=== PATIENT | male | born 1960 | race Caucasian/White ===

== ENCOUNTER 2022-09-09 21:09 | Emergency (ER) | payer BC, SELFPAY ==
[2022-09-09] VITALS (14 sets, daily range): BP systolic 90–158; BP diastolic 56–97; PULSE 54–176; RESP 17–22; TEMP 36.2; O2SAT 97–100
--- NOTE | ~2022-09-09 | XR_ITS ---
EXAMINATION: XR chest 2V Exam Date/Time: 09/09/2022 21:40 CDT HISTORY: Dyspnea Comparison: None available. RESULT: Lines, tubes, and devices: Cholecystectomy clips. Lungs and pleura: Streaky linear and interstitial opacities in the left lung base. Linear scar in th e right lung base. Cardiomediastinal silhouette: Unremarkable. Other: No acute osseous or upper abdominal finding. IMPRESSION: Left basilar opacities may represent atelectasis and/or scar, possibly with a component of chronic as piration, in the appropriate clinical context. Reviewed, dictated and finalized at location K. IMPRESSION: Left basilar opacities may represent atelectasis and/or scar, possibly with a c omponent of chronic aspiration, in the appropriate clinical context.
--- NOTE | 2022-09-09 21:11 | ECG_ITS ---
Measurements Intervals [place] Rate: 155 P: 63 SC: 151 QRS: -38 QRSD: 89 T: 68 QT: 316 QTc: 508 Interpretive Statements SUPRAVENTRICULAR TACHYCARDIA CONVERTING TO SINUS RHYTHM WITH PVCS VERSUS APPARENTLY CONDUCTED COMPLEXES NONSPECIFIC ST AND T-WAVE ABNORMALITIES ABNORMAL ECG Electronically Signed On 09-10-2022 10:24:39 CDT by Adan Smith M.D.
--- NOTE | 2022-09-09 21:11 | ED.SOB ---
HPI - SOB/Dyspnea General Chief Complaint: Arrhythmia/Palpitations Stated Complaint: chest pains, dizzy Time Seen by Provider: 09/09/22 21:11 Source: patient, family and RN notes reviewed Mode of arrival: ambulatory Limitations: no limitations History of Present Illness HPI Narrative: 61-year-old male with no past medical history presents with a 1 month history of intermittent palpitations, lightheadedness and chest tightness. He states the last 3 days seems to gotten worse and more frequent. Today's episode became significantly worse approximately 7 hours prior to arrival. He denies any nausea denies any diaphoresis. He denies any radiation pain. MD elicited complaint: shortness of breath Related Data Home Medications Medication Instructions Recorded Confirmed No Home Medications 09/09/22 09/09/22 Allergies Allergy/AdvReac Type Severity Reaction Status Date / Time Penicillins Allergy Hives Verified 09/09/22 22:03 [facility] Past Medical History Medical History (Updated 09/09/22 @ 22:17 by Jesus Song MD) No active medical problems Surgical History Surgical History (Updated 09/09/22 @ 21:34 by Jesus Song MD) History of ankle surgery Hx of cholecystectomy Family History Family History (Updated 09/10/22 @ 01:39 by Paulina Wills RN) Mother COPD (chronic obstructive pulmonary disease) Smokes Mitral valve problem Hx of CABG Heart problem Father COPD (chronic obstructive pulmonary disease) Emphysema lung Smokes Social History Social History (Updated 09/09/22 @ 21:35 by Jesus Song MD) Smoking packs per day: 1 Smoking cigarettes per day: 20.0 Smoking status: Current every day smoker Alcohol intake: current Alcohol use details: occasionally Substance use: current Substance use type: marijuana Spiritual care concerns: No Has the Lack of Transportation Kept You From Medical Appointments or From Getting Medications?: No Within the Past 12 Months, Were You Worried Whether Your Food Would Run Out Before You Got Money to Buy More?: Never True What is Your Housing Situation Today?: I Have Housing Are You Worried That in the Next 2 Months, You May Not Have Your Own Housing to Live In?: No Do You Have Trouble Paying Your Heating Or Electricity Bill?: No Do You Have Trouble Paying For Medicines?: No Are You Currently Unemployed and Looking for Work?: No Highest Level of Education Completed: High School Diploma/GED Do You Have Trouble With Childcare or the Care of a Family Member?: No Exam Const: General: healthy appearing, no acute distress and alert Nutritional Appearance: well nourished Orientation/consciousness: patient oriented x3 Limitations: no limitations HENMT: Head: normal to inspection Ears: external ears normal Face/Nose/Sinus: Normal external nose present Face and sinus: normal facial exam Mouth: Yes moist mucous membranes Eyes: Conjunctivae: conjunctivae normal Pupils: Equal, round and reactive pupils present EOM: EOMs intact bilaterally Neck: Neck: normal visual inspection Chest: Chest palpation & inspection: normal inspection of the chest Resp: Effort & Inspection: normal respiratory effort Auscultation: clear to auscultation bilaterally Cardio: Rate: tachycardic Rhythm: abnormal rhythm with ectopic beats GI: GI Palp: Yes Soft to palpation and No Tenderness to palpation present (GI) Auscultation: normal bowel sounds Back/Spine/Pelvis: Cervical Spine: cervical ROM normal Thoracic/Lumbar Spine: thoraco-lumbar ROM normal Skin: General skin exam: normal color Rashes: no rashes Neuro: General: patient oriented x3, moves all extremities, no focal motor deficits and CN's II-XI intact bilaterally Speech: normal speech Gait exam (Neuro): Normal gait present Extrem: General: normal to inspection and no clubbing, cyanosis or edema Psych: Mental Status: mental status grossly normal Attitude: cooperative Course Course Briana
[2022-09-09] MEDS: dilTIAZem 100 MG/100 ML 100 MG/100 ML BAG 10 MG IV CONT (21:30)
[2022-09-09 21:36] LABS: Basophils Absolute Auto 0.04 K/mm3 (0.00-0.10); Basophils Percent Auto 0.3 % (0.0-1.0); Eosinophils Absolute Auto 0.15 K/mm3 (0.02-0.50); Hematocrit 44.1 % (40.0-54.0); Hemoglobin 14.9 g/dL (14.0-18.0); Immature Granulocyte Absolute 0.09 K/mm3 (0.00-0.00); Immature Granulocyte Percent A 0.6 % (0.0-0.0); Lymphocytes Percent Auto 25.4 % (18.0-42.0); Mean Corpuscular HGB Conc 33.8 g/dL (32.0-36.0); Mean Corpuscular Hemoglobin 32.7 pg (27.0-31.0); Mean Corpuscular Volume 96.7 fL (78.0-102.0); Mean Platelet Volume 9.3 fl (8.7-11.0); Monocytes Absolute Auto 0.98 K/mm3 (0.10-0.90); Monocytes Percent Auto 6.7 % (2.0-11.0); Neutrophils Absolute Auto 9.6 K/mm3 (1.7-7.2); Platelet Count Result 355 K/mm3 (150-420); Red Blood Count 4.56 M/mm3 (4.70-6.10); Red Cell Distribution Width 12.7 % (11.6-14.4); White Blood Count 14.6 K/mm3 (4.8-10.8)
[2022-09-09 21:50] LABS: INR 0.9; Partial Thromboplastin Time 28.1 SEC (23.90-30.70); Prothrombin Time 10.4 Seconds (9.50-12.10)
[2022-09-09] MEDS: AMIODARONE 150 MG/D5W 100 ML 150 MG/100 ML BAG 600 MG IV CONT (21:58)
[2022-09-09 22:01] LABS: Alanine Aminotransferase 26 U/L (16-63); Albumin Level 3.5 g/dL (3.4-5.0); Alkaline Phosphatase 110 U/L (46-116); Anion Gap 9 mmol/L (8-16); Aspartate Amino Transferase 13 U/L (15-37); Bilirubin,Total 0.3 mg/dL (0.00-1.00); Blood Urea Nitrogen 11 mg/dL (7-18); Calcium 8.8 mg/dL (8.5-10.1); Carbon Dioxide 29 mmol/L (21-32); Chloride 105 mmol/L (98-108); Estimated Glomerular Filt Rate 60; Glucose 150 mg/dL (70-99); NT Pro B Type Natriuretic Pept 430 pg/mL (0-125); Osmolality Calculated 298 mOsm/kg (285-295); Potassium 3.3 mmol/L (3.5-5.1); Sodium 143 mmol/L (136-145); Total Protein 6.9 g/dL (6.4-8.2); Troponin I 13.7 ng/L (0.00-60.4)
[2022-09-09 22:02] LABS: Thyroid Stimulating Hormone 3.91 uIU/mL (0.36-3.74)
--- NOTE | 2022-09-09 22:12 | PC.NURSE ---
called Paul rigginswarehouse technician for pt transfer - spoke with Gómez
[2022-09-09] MEDS: POTASSIUM BICARBONATE 25 MEQ TABEF 50 MEQ PO (22:20)
[2022-09-09] MEDS: dilTIAZem HCl INJ 25 MG/5 ML VIAL 20 MG IV PUSH (22:23)
[2022-09-09] MEDS: Please add drug allergy info to patient profile. 1 EACH XX (22:33)
--- NOTE | 2022-09-09 22:37 | PC.NURSE ---
Addendum entered by Ravi Ruiz RN 09/09/22 22:40: call placed at [phone] Original Note: Second call to Paul - spoke with Mely Ma should be calling in the next few minutes.
--- NOTE | 2022-09-09 22:38 | PC.NURSE ---
[facility] returned call. MD Ma phone call transferred to MD Song
[2022-09-09] MEDS: AMIODARONE 360 MG/D5W 200 ML 360 MG/200 ML BAG 33.33 MG IV CONT (22:49)
[2022-09-09 22:56] LABS: D Dimer 0.27 mg/L (0.19-0.50)
--- NOTE | 2022-09-09 23:22 | PC.NURSE ---
[facility] - MD Cook returned call - speaking with MD Song.
--- NOTE | 2022-09-09 23:32 | PC.NURSE ---
pt to be transferred to [place] [facility] room 201
--- NOTE | 2022-09-09 23:33 | PC.NURSE ---
Gómez granda deanna called to correct room number to IMU 210
[2022-09-09] MEDS: ENOXAPARIN 1 MG/KG 90 MG SUB-Q (23:43)
--- NOTE | 2022-09-09 23:49 | PC.NURSE ---
requested [facility] transfer from [facility]
[2022-09-10 00:02] VITALS: BP 125/47; PULSE 124; RESP 18; O2SAT 97
[2022-09-10 00:27] VITALS: BP 125/47; PULSE 146
[2022-09-10 00:30] VITALS: BP 125/47; PULSE 146
--- NOTE | 2022-09-10 00:30 | PC.NURSE ---
[facility] transporting pt from [facility] to [place] [facility] room 210
[2022-09-10 00:31] VITALS: BP 125/47; PULSE 146
[2022-09-10 00:33] VITALS: BP 125/47; PULSE 146; RESP 19; TEMP 36.8; O2SAT 97
== END 2022-09-10 00:35 | disposition short-term general hospital (02) ==
PROVIDERS: Emergency Provider Emergency Medicine
DX: I47.1 Supraventricular tachycardia (principal); E87.6 Hypokalemia; R06.02 Shortness of breath
CPT/HCPCS: 36415; 71046; 80053; 83735; 83880; 84443; 84484; 85025; 85380; 85610; 85730; 93005; 96365; 96366; 96367; 96372; 96376; 99285; A9270; J0153; J0282; J1650

== ENCOUNTER 2022-09-10 04:09 | Observation (INO) | payer BC, SELFPAY ==
[2022-09-10] VITALS (12 sets, daily range): BP systolic 107–138; BP diastolic 64–84; PULSE 56–81; RESP 16–18; TEMP 36.3–36.7; O2SAT 97–100; BMI 25.7
--- NOTE | 2022-09-10 | ECHO_ITS ---
Patient Info Name: Parveen Cavazos Age: 61 years : 1960 Gender: Male Ht: 73 in Wt: 194 lbs BSA: 2.14 m2 HR: 75 bpm BP: 112 / 71 mmHg Heart Rhythm: Sinus Rhythm Technical Quality: Good Exam Date: 09/10/2022 11:25 AM Exam Location: [facility] Pulmonary Exam Room: 210 Patient Status: Inpatient Admit Date: 09/10/2022 Staff Ordering Physician: Magaly Nguyen DO Fall Intern: Elisabet Shea RDCS Attending Provider: Magaly Nguyen DO Referring Physician: Patrick CID; Exam Type: CA echo doppler color flow Study Info Indications - CARDIAC ARRHYTHMIA Complete two-dimensional, color flow and Doppler transthoracic echocardiogram is performed. Summary 1. Complete two-dimensional, color flow and Doppler transthoracic echocardiogram is performed. 2. Left ventricular chamber dimension is normal. 3. Left ventricular systolic function is normal, estimated at 60-65%. 4. There is no increased left ventricular wall thickness. 5. The left ventricular diastolic function is normal. 6. Left atrial chamber dimension is mildly enlarged. 7. There is mild mitral valve regurgitation. 8. There is mild tricuspid valve regurgitation. Left Ventricle Left ventricular chamber dimension is normal. Left ventricular systolic function is normal, estimated at 60-65%. There is no increased left ventricular wall thickness. The left ventricular diastolic function is normal. Right Ventricle Right ventricular chamber dimension is normal. Right ventricular systolic function is normal. Left Atria Left atrial chamber dimension is mildly enlarged. Right Atria Right atrial chamber dimension is normal. Atrial Septum Intact interatrial septum visualized by color flow imaging. Aortic Valve The aortic valve is trileaflet. There is mild aortic valve sclerosis. There is no aortic valve stenosis. There is trace aortic valve regurgitation. Pulmonic Valve The pulmonic valve is normal. There is no pulmonic valve stenosis. There is trace pulmonic regurgitation. Mitral Valve The mitral valve has normal leaflets. There is no mitral valve stenosis. There is mild mitral valve regurgitation. Tricuspid Valve The tricuspid valve leaflets are normal. There is no significant tricuspid valve stenosis. There is mild tricuspid valve regurgitation. No pulmonary hypertension, estimated pulmonary arterial systolic pressure is 33 mmHg. Pericardium/Pleural The pericardium appears normal. There is trivial pericardial effusion. Inferior Vena Cava Normal inferior vena cava with >50% collapse upon inspiration consistent with normal right atrial pressure, 10 mmHg. Aorta The aortic root size at the sinus of Valsalva is normal. Left Ventricular Outflow Tract Name Value Normal LVOT 2D LVOT Diameter 2.1 cm LVOT Doppler LVOT Peak Gradient 4 mmHg LVOT Mean Gradient 2 mmHg LVOT VTI 19 cm LVOT VTI/AV VTI Ratio 0.9 LVOT Stroke Volume 64 ml LVOT CO
--- NOTE | 2022-09-10 01:11 | ADMGEN ---
This patient, Parveen Cavazos, was admitted to IMU Room 210-01 at 0100 from [facility] via [facility]. Patient/family oriented to hospital policies and general routines including ID bracelet, bed and alarms, visiting hours, pain management, procedures, bathroom and other care routines, personal items, smoking policy, room service/diet, and visiting hours. Information on how to activate the Rapid Response Team has been discussed. Patient/Family are encouraged to report perceived risks to care and to ask questions if they do not understand what they are told or what they should do.
--- NOTE | 2022-09-10 01:29 | ECG_ITS ---
Measurements Intervals [place] Rate: 78 P: 59 ME: 156 QRS: -39 QRSD: 89 T: 41 QT: 366 QTc: 418 Interpretive Statements SINUS RHYTHM MARKED LEFT AXIS DEVIATION [QRS AXIS < -30] ABNORMAL ECG COMPARED TO ECG 09/09/2022 21:14:39 SINUS RHYTHM NOW PRESENT Electronically Signed On 09-10-2022 10:20:52 CDT by Adan Smith M.D.
[2022-09-10] MEDS: AMIODARONE 360 MG/D5W 200 ML 360 MG/200 ML BAG 16.67 MG IV CONT (04:15)
--- NOTE | 2022-09-10 04:16 | PM.IMHP ---
H&P: HPI History of Present Illness Date/Time: 09/10/22 04:16 Chief Complaint: ?I feel like my heart is racing? Narrative: 61-year-old male with a past medical history of tobacco abuse who presented to the ER at [place] with sensation of his heart racing. The patient reports that he has been having several episodes of this over the last month. But his other episodes of racing heart lasted only a few minutes and resolved. But over the last 3 days he has had numerous episodes of palpitations. He he was off work on Thursday but was supposed to return to work Thursday and Thursday and could not go to work due to the intensity and duration of his symptoms. Symptoms start with chest pressure, feeling lightheaded and flushed. He will also become dizzy and usually symptoms resolve about the time he feels like he is going to pass out. He states that he would not describe the chest pressure is pain. However he does have some chest soreness that is reproducible to palpation following these episodes of palpitations. 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 Denies taking any stimulants and only drinks 1-2 caffeinated beverages day. He still smokes 1 pack of cigarettes per day. he denies any known medical history but has not seen a physician since he had his gallbladder out at least 10 years ago and has not seen a primary care physician in many years before that. He denies any recent weight loss, hematochezia, melena or hematuria. At the outside facility here staff reports the patient initially looked like he was and atrial flutter with RVR. He was given 20 mg of Cardizem IV. He was then started on a Cardizem drip. Physician felt at that time that he had switch in SVT and they were getting ready given a dose of adenosine after they had paused the Cardizem drip. However he converted into a sinus rhythm. He continued to have an irritable rhythm and was in an out of sinus rhythm and ventricular tachycardia. Heart rate was into the 190s according to ER physician. He was also noted have episodes of bigeminy and moments of bradycardia. He then gave 150 mg amiodarone bolus over 10 minutes. He discussed the patient's case with Dr. Ma and the patient was placed on amiodarone drip. The patient then converted to sinus rhythm before arrival at our facility. Repeat EKG was performed and confirmed patient was in sinus rhythm. The patient reports that he has had a chronic cough with mucus production ever since he was young. It sounds as if he was having frequent episodes of pneumonia a possible reactive airway symptoms when he was a child. He denies any fevers or chills. He does report hearing loss but works and the loud environment. Review of Systems Review of Systems: 12 systems were reviewed with pertinent positives and negatives per HPI. Except as documented in the HPI, all other systems were reviewed and are negative. [facility] Past Medical History Medical History (Updated 09/10/22 @ 04:58 by Magaly Nguyen DO) Continuous tobacco abuse Surgical History Surgical History (Updated 09/10/22 @ 04:37 by Magaly Nguyen DO) History of ankle surgery Left ankle Hx of cholecystectomy (~2011) Family History Family History Mother COPD (chronic obstructive pulmonary disease) Smokes Mitral valve problem Hx of CABG Father COPD (chronic obstructive pulmonary disease) Emphysema lung Smokes Social History Social History (Updated 09/10/22 @ 04:41 by Magaly Nguyen DO) Social History: He lives with his of 3 years. He does not have any children. 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 He has smoked a pack of cigarettes per day since he was 16 years old. He drinks 1-2 caffeinated beverages a day. He smokes marijuana ?on occasion. Code status: Full code [place]
[2022-09-10 05:48] LABS: Basophils Absolute Auto 0.1 K/mm3 (0.0-0.1); Basophils Percent Auto 0.6 % (0.2-1.2); Eosinophils Absolute Auto 0.2 K/mm3 (0-0.3); Eosinophils Percent Auto 1.7 % (0-4.4); Hematocrit 43.4 % (42.0-52.0); Hemoglobin 14.7 g/dL (14.0-18.0); Immature Granulocyte Absolute 0.13 K/mm3 (0.00-0.031); Immature Granulocyte Percent A 1.3 % (0-0.5); Lymphocytes Absolute Auto 3.61 K/mm3 (0.9-3.2); Lymphocytes Percent Auto 36.4 % (18.3-44.2); Mean Corpuscular HGB Conc 33.9 g/dl (32-36); Mean Corpuscular Volume 97.5 fl (80-100); Mean Platelet Volume 9.7 fl (7.4-10.4); Monocytes Absolute Auto 0.7 K/mm3 (0.1-0.6); Monocytes Percent Auto 7.4 % (2.6-8.5); Neutrophils Absolute Auto 5.2 K/mm3 (1.3-6.7); Neutrophils Percent Auto 52.6 % (45.5-73.1); Platelet Count Result 327 k/mm3 (150-375); Red Blood Count 4.45 M/mm3 (4.6-6.20); White Blood Count 9.9 K/mm3 (4.5-10.0)
[2022-09-10 05:58] LABS: Anion Gap 9 mmol/L (8-16); Blood Urea Nitrogen 12 mg/dL (9-20); Calcium 9.2 mg/dL (8.4-10.2); Carbon Dioxide 25 mmol/L (22-30); Chloride 105 mmol/L (98-107); Cholesterol 190 mg/dL (0-200); Estimated CRCL calculation 85 ml/min; Estimated Glomerular Filt Rate > 60; Glucose 108 mg/dL (65-110); HDL Direct 41 mg/dL; Magnesium 2.2 mg/dL (1.6-2.3); Potassium 3.9 mmol/L (3.4-5.0); Sodium 139 mmol/L (137-145); Triglycerides 89 mg/dL (<150)
[2022-09-10 06:08] LABS: LDL Cholesterol Direct 128 mg/dL
[2022-09-10 06:11] LABS: Free T4 Free Thyroxine 1.09 ng/mL (0.78-2.19)
[2022-09-10] MEDS: ENOXAPARIN 100 MG/ML SYRINGE 88 MG SUB-Q ×2 (09:17→21:13)
[2022-09-10] MEDS: FLUTICASONE PROPIONATE 0.05% NA SPR 16 GM BTL (*BKC) 2 SPRAY NASAL (09:17)
--- NOTE | 2022-09-10 10:49 | PM.IMPN ---
Progress Note: A&P Assessment and Plan (1) Cardiac arrhythmia: Code(s): I49.9 - Cardiac arrhythmia, unspecified Status: Acute Assessment and Plan: Patient had converted back to sinus rhythm and is on amiodarone drip. Awaiting further recommendations from Cardiology. The patient has been admitted to the IMU. Given that portion of the patient's rhythm appeared to be consistent with possible atrial flutter patient was given a dose of full-dose Lovenox. Will obtain echocardiogram to further evaluate cardiac structure and function. (2) Hypokalemia: Code(s): E87.6 - Hypokalemia Status: Acute Assessment and Plan: Patient received 50 mEq of potassium bicarbonate at the outside hospital. Will repeat BMP in a.m. for potassium closer to 4. Magnesium was 2. (3) Chronic cough: Code(s): R05.3 - Chronic cough Status: Acute Assessment and Plan: The patient reports symptoms since childhood. He may have a component of asthma which is certainly not helped by his continuous tobacco use. Tobacco cessation information has been provided. Patient would benefit from outpatient PFTs. I did evaluate the patient's nasal mucous membranes any does have some at edema. Will start patient on Flonase for allergic rhinitis (4) Allergic rhinitis: Qualifiers: Allergic rhinitis trigger: unspecified Allergic rhinitis seasonality: non-seasonal Qualified Code(s): J30.89 - Other allergic rhinitis Code(s): J30.9 - Allergic rhinitis, unspecified Status: Acute Assessment and Plan: Trial of Flonase. (5) Hearing loss: Qualifiers: Hearing loss type: unspecified Laterality: bilateral Qualified Code(s): H91.93 - Unspecified hearing loss, bilateral Code(s): H91.90 - Unspecified hearing loss, unspecified ear Status: Acute Assessment and Plan: He reports hearing loss that has gotten progressively worse. He would benefit from from outpatient audiology evaluation Plan See H&P as it was written after midnight for plan. Appreciate recommendations from Cardiology. Subjective Date/time seen: 09/10/22 10:49 Patient seen and examined this morning. Patient says he has not felt any palpitations or fluttering in his chest since approximately an hour after he arrived on the floor from the emergency department. He says after each episode he has intense chest pain feeling like something hit him in the chest. He says he is having that pain now. He denies lightheadedness, nausea, shortness of breath. Exam Narrative: GENERAL: NAD, cooperative HEENT: Normocephalic, atraumatic, anicteric NECK: Supple CV: Normal S1, S2, RRR, No MRG RESP: Scattered expiratory wheezes EXTREMITIES: Warm and well perfused, no clubbing, cyanosis, or edema. SKIN: warm, dry and intact. NEURO: CN 2-12 grossly intact. Objective Data Vital Signs Vital Signs: Vital Signs - 24 hr 09/10/22 00:58 09/10/22 01:10 09/10/22 01:46 Temperature 36.3 C L Pulse Rate 81 78 Respiratory Rate 18 Blood Pressure 118/78 Pulse Oximetry 100 Oxygen Delivery Room Air 09/10/22 04:00 09/10/22 04:15 09/10/22 04:00 Temperature 36.7 C Pulse Rate 68 66 75 Respiratory Rate 18 16 Blood Pressure 112/71 Pulse Oximetry 100 98 Oxygen Delivery Room Air 09/10/22 06:00 09/10/22 06:00 09/10/22 08:00 Temperature 36.7 C 36.4 C L Pulse Rate 68 69 Respiratory Rate 16 16 Blood Pressure 110/74 122/81 Pulse Oximetry 99 98 Oxygen Delivery 09/10/22 08:00 09/10/22 08:00 09/10/22 12:00 Temperature 36.3 C L Pulse Rate 72 72 Respiratory Rate 18 Blood Pressure 133/75 Pulse Oximetry 97 Oxygen Delivery Room Air 09/10/22 12:00 09/10/22 12:00 09/10/22 16:00 Temperature Pulse Rate 69 65 Respiratory Rate Blood Pressure Pulse Oximetry Oxygen Delivery Room Air 09/10/22 16:00 09/10/22 16:00 Temperature
--- NOTE | 2022-09-10 13:37 | PM.CNCAR ---
Assessment and Plan Assessment and plan (1) Cardiac arrhythmia: Code(s): I49.9 - Cardiac arrhythmia, unspecified Status: Acute Assessment and Plan: Appears to have sustained supraventricular tachycardia versus atrial flutter (less likely). Also frequent PVCs is well as some bursts of nonsustained ventricular tachycardia. Rhythm as essentially settled down now that he is on amiodarone. 2D echocardiogram with Dopplers ordered and will be reviewed. Will discontinue the amiodarone drip at this point. Start him on metoprolol tartrate 25 mg p.o. b.i.d.. He may be downgraded to IMU status. He needs an outpatient stress test. Depending on his rhythm over the next 24 hours, likely discharge home tomorrow with outpatient cardiac monitoring. This of course is also dependent on the results of his echocardiogram. If he continues to have issues with tachycardia as an outpatient, will refer to electrophysiology. Will check a TSH, free T4 level. Keep magnesium greater than 2 and potassium greater than 4.0. (2) Supraventricular tachycardia: Code(s): I47.1 - Supraventricular tachycardia Status: Acute Assessment and Plan: On amiodarone drip for now. Will discontinue and start metoprolol. (3) Hypokalemia: Code(s): E87.6 - Hypokalemia Status: Acute Assessment and Plan: Replaced (4) Tobacco use: Code(s): Z72.0 - Tobacco use Status: Acute Assessment and Plan: Tobacco abuse counseling performed History of Present Illness History of Present Illness Consult date/time: 09/10/22 13:37 Requesting physician: Magaly Nguyen DO Consult reason: Other (Arrhythmia) Reason For Visit: cardiac arrhthmia,hypokalemia Narrative: : Date of service 09/10/2022 Reason consultation: Arrhythmia Requesting provider: Dr. Nguyen History patient 61-year-old male who was previously healthy who has a history of tobacco use. He states that he has been having some palpitations for several years. Typically is palpitations would last for few seconds. Over the past month however he has had several episodes of sudden onset of palpitations lasting anywhere from seconds to hours. He sometimes will become dizzy and has a head downey and presyncopal. He has not actually passed out. His chest will be pounding hard and quite fast. He denies any edema, paroxysmal nocturnal dyspnea. At the same time is having palpitations he will have some chest pain as well shortness of breath. He is lightheaded. His symptoms will improve gradually over time and seems to get better with deep breathing. Yesterday he had episodes that were associated with significant presyncope and so he went to the hospital in [place] for further workup evaluation treatment. He was found to be in a narrow complex tachycardia with heart rate of around 200 beats per minute. He also had periods of time which he had some PVCs and what appears to be some short burst of nonsustained ventricular tachycardia versus is SVT with aberrancy. Regardless his rhythm continue to go in and out of sinus mechanism and he eventually was transferred from [place] to [facility]. He was previously on a diltiazem drip and later converted to an amiodarone drip which has settled down his rhythm. Review of Systems Review of Systems: All systems reviewed & are unremarkable except as noted in HPI and below Constitutional: Constitutional: Denies body ache(s) and Denies chills Eyes: Eyes: Denies blurry vision ENT: Reports Normal hearing present Cardiovascular: Cardiovascular: Reports chest pain and Reports palpitations Respiratory: Respiratory: Reports dyspnea Gastrointestinal: Gastrointestinal: Denies abdominal pain Genitourinary: Genitourinary: Denies hematuria and Denies dysuria Musculoskeletal: Musculoskeletal: Denies myalgias Integumentary/Breasts: Skin/Breast: Denies erythema, Denies rash and Denies skin pain Neurologic: Denies Abnorm
[2022-09-10] MEDS: METOPROLOL TARTRATE 25 MG TABLET PO ×2 (15:12→21:13)
[2022-09-11] VITALS (8 sets, daily range): BP systolic 121–137; BP diastolic 77–81; PULSE 50–66; RESP 14–18; TEMP 36.1–36.3; O2SAT 97–99
[2022-09-11 05:31] LABS: Anion Gap 8 mmol/L (8-16); Blood Urea Nitrogen 12 mg/dL (9-20); Calcium 9.1 mg/dL (8.4-10.2); Carbon Dioxide 25 mmol/L (22-30); Chloride 104 mmol/L (98-107); Estimated CRCL calculation 71 ml/min; Estimated Glomerular Filt Rate > 60; Glucose 106 mg/dL (65-110); Potassium 4.1 mmol/L (3.4-5.0); Sodium 137 mmol/L (137-145)
[2022-09-11] MEDS: ENOXAPARIN 100 MG/ML SYRINGE 88 MG SUB-Q (09:54)
[2022-09-11] MEDS: METOPROLOL TARTRATE 25 MG TABLET PO (09:55)
--- NOTE | 2022-09-11 10:11 | PM.PNCARD ---
Progress Note: A&P Assessment and Plan (1) Cardiac arrhythmia: Code(s): I49.9 - Cardiac arrhythmia, unspecified Status: Acute Assessment and Plan: Appears to have sustained supraventricular tachycardia versus atrial flutter (less likely). Also frequent PVCs is well as some bursts of nonsustained ventricular tachycardia. Returned to sinus rhythm on amiodarone which was stopped yesterday. Remains in sinus rhythm today on metoprolol. Echo showed normal LVSF, no significant valvular abnormalities. Will arrange for outpatient exercise nuclear stress test OK for discharge today with 30 day patient monitor If he continues to have issues with tachycardia as an outpatient, will refer to electrophysiology. (2) Tobacco use: Code(s): Z72.0 - Tobacco use Status: Acute Assessment and Plan: Tobacco abuse counseling performed Subjective Date/time seen: 09/11/22 10:11 Cardiology follow up for SVT Interval history: Feeling well this morning, no complaints. Denies palpitations, shortness of breath, chest pain. No recurrence of tachycardia on telemetry. Review of Systems Review of Systems: All systems reviewed & are unremarkable except as noted in HPI and below Constitutional: Constitutional: Denies body ache(s), Denies chills, Denies excessive sweating, Denies fatigue and Denies headache(s) Eyes: Eyes: Denies blurry vision ENT: Reports Normal hearing present and Denies headache(s) Cardiovascular: Cardiovascular: Reports chest pain, Reports palpitations and Reports dyspnea Respiratory: Respiratory: Reports dyspnea Gastrointestinal: Gastrointestinal: Denies abdominal pain Genitourinary: Genitourinary: Denies hematuria and Denies dysuria Musculoskeletal: Musculoskeletal: Denies myalgias Integumentary/Breasts: Skin/Breast: Denies erythema, Denies rash and Denies skin pain Neurologic: Reports Normal hearing present, Denies Abnormal speech present and Denies headache(s) Psychiatric: Psychiatric: Denies anxiety Endocrine: Endocrine: Denies excessive sweating, Denies fatigue and Reports palpitations Hematologic/Lymphatic: Hematologic/Lymphatic: Denies easy bleeding Allergic/Immunologic: Allergic/Immunologic: Denies GI upset with certain foods Exam Narrative: Awake alert oriented appears stated age Const: General: comfortable; No in distress HENMT: Face/Nose/Sinus: Normal nares present Mouth: Yes moist mucous membranes Eyes: General: appearance normal, both eyes and all related structures Sclera: sclerae normal Neck: Neck: supple Carotids: no bruits Chest: Other: No reproducible chest wall pain to palpation Resp: Effort & Inspection: normal respiratory effort Cardio: Rate: regular rate Rhythm: regular rhythm Heart sounds: no murmurs GI: Inspection: non-distended Auscultation: normal bowel sounds Skin: General skin exam: normal color and No rashes noted Rashes: no rashes noted Neuro: General: gait normal Cranial nerves: Yes Normal hearing present Speech: normal speech and No Abnormal speech present Motor exam (neuro): 5/5 motor strength present throughout Sensory Exam: normal sensation Extrem: General: normal to inspection Psych: Mental Status: mental status grossly normal Affect: normal affect Objective Data Vital Signs Vital Signs: Vital Signs - 24 hr 09/10/22 12:00 09/10/22 12:00 09/10/22 12:00 Temperature 36.3 C L Pulse Rate 72 69 Respiratory Rate 18 Blood Pressure 133/75 Pulse Oximetry 97 Oxygen Delivery Room Air 09/10/22 16:00 09/10/22 16:00 09/10/22 16:00 Temperature 36.6 C Pulse Rate 65 63 Respiratory Rate 16 Blood Pressure 138/84 Pulse Oximetry 97 Oxygen Delivery Room Air 09/10/22 20:00 09/10/22 21:13 09/10/22 23:21 Temperature 36.7 C 36.7 C Pulse Rate 62 66 56 L Respiratory Rate 18 16 Blood Pressure 124/72 107/64 Pulse Oximetry 98 97 Oxygen Delivery 09/10/22 20:00 09/10/22 20:00 1
--- NOTE | 2022-09-11 10:44 | PC.NURSE ---
ALEXANDR Garcia called to report pt will need to be in cardiology office prior to 1530 to retrieve monitor to wear upon discharge. Dr. Ferguson called and made aware. No new orders at this time.
[2022-09-11] MEDS: PHENYLEPHRINE 1% NA SPR (*BKC) 15 ML BTL 1 SPRAY NASAL (11:35)
--- NOTE | 2022-09-11 13:05 | PM.DS ---
DS: Admitting Diagnosis Discharge Date 09/11/22 Admitting Diagnosis Cardiac Arrhythmia DS: Discharge Diagnosis Discharge Diagnosis (1) Cardiac arrhythmia: Code(s): I49.9 - Cardiac arrhythmia, unspecified Status: Acute Assessment and Plan: In [place] ED atrial flutter with concerns of SVT. Has remained in sinus rhythm since admission and has been on metoprolol without any issues overnight. Appears clinically improved denying any new chest pain or palpations. -Continue metoprolol 25 mg BID -Will get Holter Monitor from [facility]iology Clinic to wear for 30 days after discharge -Outpatient stress test with Cardiology -No need for anticoagulation, per Cardiology (2) Hypokalemia: Code(s): E87.6 - Hypokalemia Status: Inactive Assessment and Plan: Repleted yesterday. Resolved. (3) Chronic cough: Code(s): R05.3 - Chronic cough Status: Acute Assessment and Plan: Can continue over the counter supportive treatment. Given his tobacco abuse, would qualify for outpatient screening CT of the lungs yearly. This can be ordered by primary care physician. (4) Allergic rhinitis: Qualifiers: Allergic rhinitis trigger: unspecified Allergic rhinitis seasonality: non-seasonal Qualified Code(s): J30.89 - Other allergic rhinitis Code(s): J30.9 - Allergic rhinitis, unspecified Status: Acute Assessment and Plan: Can continue over the counter supportive treatment. No evidence of infection. (5) Hearing loss: Qualifiers: Hearing loss type: unspecified Laterality: bilateral Qualified Code(s): H91.93 - Unspecified hearing loss, bilateral Code(s): H91.90 - Unspecified hearing loss, unspecified ear Status: Acute Assessment and Plan: May benefit from hearing aides versus a visit with an Packaging Design Engineer. Will need follow up outpatient by primary care physician. (6) Tobacco use: Code(s): Z72.0 - Tobacco use Status: Acute Assessment and Plan: Advised patient to stop smoking. (7) Prediabetes: Code(s): R73.03 - Prediabetes Status: Acute Assessment and Plan: Hemoglobin a1c 6.0. Will need to follow up outpatient with primary care physician. DS: Summary Hospital Course Reason for hospitalization: Cardiac arrhythmia Hospital Course: 61M with a past medical history of tobacco abuse who presented to the emergency department in [place] with sensation of his heart racing. Patient was found to be atrial flutter with RVR at [place] emergency department and was started on a Cardizem drip. ED physician was concerned for supraventricular tachycardia, so physician paused the cardizem drip to give adenosine but then it was noted the patient converted to sinus rhythm. Patient was transferred to [facility] where an amiodarone drip was started. The converted to sinus rhythm. Echocardiogram showed EF 60-65% with increased LV wall thickness and normal diastolic function. Cardiology was consulted and transitioned the patient to metoprolol. The patient remained in sinus rhythm and was discharged to home on metoprolol without anticoagulation, per Cardiology recommendations. Cardiology recommended outpatient stress test and holter monitor for thirty days after discharge. Time Spent with Patient Time attestation: Total time spent providing and/or coordinating discharge services: Exam Narrative: GENERAL: NAD, cooperative HEENT: Normocephalic, atraumatic, anicteric NECK: Supple CV: Normal S1, S2, RRR, No MRG RESP: Scattered expiratory wheezes EXTREMITIES: Warm and well perfused, no clubbing, cyanosis, or edema. SKIN: warm, dry and intact. NEURO: CN 2-12 grossly intact. DS: Data Data Completed and Pending Labs on day of discharge: Labs from last 24 hours 09/11/22 04:39 Sodium 137 Potassium 4.1 Chloride 104 Carbon Dioxide 25 Anion Ga
== END 2022-09-11 14:42 | disposition home or self-care (01) ==
PROVIDERS: Admitting Provider Internal Medicine; Visit Provider Family Medicine
DX: I49.9 Cardiac arrhythmia, unspecified (principal); I47.1 Supraventricular tachycardia; E87.6 Hypokalemia; R05.3 Chronic cough; J30.9 Allergic rhinitis, unspecified; F17.210 Nicotine dependence, cigarettes, uncomplicated; H91.90 Unspecified hearing loss, unspecified ear; R73.03 Prediabetes
CPT/HCPCS: 36415; 80048; 80061; 83036; 83735; 84439; 85025; 93005; 93306; 96372; 96374; A9270; G0378; G0379; J0282; J1650

== ENCOUNTER 2023-12-23 07:38 | Outpatient (CLI) | payer BC, SELFPAY ==
--- NOTE | ~2023-12-23 | US_ITS ---
Ultrasound of the Abdominal Aorta INDICATION: Abdominal aortic aneurysm, smoking history TECHNIQUE: Grayscale, color Doppler, and pulsed Doppler images of the aorta and common iliac arteries were obtained. COMPARISON: None. FINDINGS: Maximum vascular dimensions are as follows: Proximal aorta: 2.7 cm Mid aorta: 2.5 cm Distal aorta: 2.0 cm Right common iliac artery: 1.3 cm Left common iliac artery: 1.2 cm There is no evidence of abdominal aortic aneurysm. IMPRESSION: No evidence for abdominal aortic aneurysm. Reviewed, dictated and finalized at location [facility]
== END 2023-12-23 07:39 | disposition home or self-care (01) ==
LOC: CHSIMG 07:39
PROVIDERS: Visit Provider Internal Medicine Cardiovascular Disease
DX: Z72.0 Tobacco use (principal)
CPT/HCPCS: 76775